=== PATIENT | female | born 1965 | race Caucasian/White ===

== ENCOUNTER 2017-06-08 11:52 | Emergency (ER) | payer BC ==
[2017-06-08 12:00] VITALS: BP 139/100
--- NOTE | 2017-06-08 12:15 | ERNOTE ---
GI Bleeding/Rectal Pain ER Presenting Symptoms: hemorrhoids, other - patient had recent hemorrhoid surgery in [place] Time Seen by Provider: 06/08/17 12:00 Immunizations: IMMUNIZATION HX Immunizations Up to Date Yes History of Influenza Vaccine No Hx Pneumococcal Vaccination No Allergies/Adverse Reactions: Allergies No Known Allergies Allergy (Verified 06/08/17 12:00) Home Medications: HOME MEDICATIONS HYDROcodone/ACETAMINOPHEN [[place] 5-325] 1 tab PO Q6H PRN 06/08/17 [Last Taken Unknown] Narrative: patient had recent hemorrhoidectomy approximately one week ago and had an exacerbation of the pain with continuing bleeding Timing: constant Quality/Severity: Present: moderate Nausea/Vomiting: Present: none Rectal Bleeding: Present: blood mixed with stool Prior Treament: Reports: recently seen, treated by physician Review of Systems - Review of Systems Constitutional: Present: See HPI EYE: Present: no symptoms reported ENT: Present: no symptoms reported Respiratory: Present: no symptoms reported Cardiology: Present: no symptoms reported Gastrointestinal/Abdominal: Present: See HPI Genitourinary: Present: no symptoms reported Musculoskeletal: Present: no symptoms reported Skin: Present: no symptoms reported Neurological: Present: no symptoms reported Endocrine: Present: no symptoms reported Hematologic/Lymphatic: Present: no symptoms reported Psych: Present: no symptoms reported - Patient's Past Medical History Patient History - Medical: No pertinent hx Patient History - Cardiac/Respiratory: No pertinent hx Patient History - Cancer: No Hx of Cancer Patient History - Surgical Procedures: Hysterectomy, Other - hemorrhoidectomy last week and [facility] Patient History - Other: None - Family History Father Family History - Medical: Diabetes Type 2 Mother Family History - Medical: Alzheimer's Disease - Social History Psych History: No pertinent hx Smoking Status: Never smoker Have you smoked in the past 12 months: No - Immunizations Immunizations Up to Date: Yes Hx Pneumococcal Vaccination: No History of Influenza Vaccine: No Physical Exam - Physical Exam General Appearance: Present: wd/wn, alert, moderate distress Eye Exam: Normal inspection: bilateral, PERRL: bilateral Ears, Nose, Throat: Present: normal ENT inspection, H, normal pharynx Neck: Present: normal inspection, nontender Respiratory: Present: no respiratory distress, normal breath sounds, no accessory muscle use, chest nontender, lungs clear Cardiovascular/Chest: Present: regular rate, rhythm, no murmur, normal peripheral pulses Gastrointestinal/Abdominal: Present: normal bowel sounds, nontender, nondistended, soft, no organomegaly Rectal Exam: Present: hemorrhoids - all the patient stated that she had a hemorrhoidectomy she appears to have a new hemorrhoid present with some residual bleeding around the previous hemorrhoidectomy Back Exam: Present: normal inspection, normal range of motion Extremity Exam: Present: normal inspection, non-tender, no edema, normal range of motion Neurological Exam: Present: alert, oriented, normal mood/affect Skin Exam: Present: normal color, warm/dry Lymphatic Exam: Present: no adenopathy ED Progress - Vital Signs Patient's Vital Signs:: I have reviewed the patient's vital signs. Vital Signs: Vital Signs 06/08/17 11:57 Temperature 36.4 C L Pulse Rate 116 H Respiratory 14 Rate Blood Pressure 139/100 O2 Sat by Pulse 96 Oximetry - Progress/Reassessment Chief Complaint: GI Bleed Plan - Plan Plan: It was suggested to the patient that she call her surgeon in [place] for repeat examination. Patient states that she had excision of the hemorrhoids however she appears to have a new hemorrhoid present and still has some trace residual bleeding around the previous hemorrhoidectomy. Departure Clinical Impression: History of hemorrhoidectomy Hemorrhoids Qualifiers: Hemorrhoid type: unspecified Qualified Code(s): K64.9 - Unspecified hemorrhoids - Departure Disposition: Home self-care Condition: Good Instructions: Surgical Procedures for Hemorrhoids, Care After, Hemorrhoids, [id number] Additional Instructions: Call your surgeon in [place] Referrals: Clari Grover MD [Primary Care Provider] -
== END 2017-06-08 12:20 | disposition home or self-care (01) ==
LOC: ER 11:52
DX: K64.9 Unspecified hemorrhoids (principal); Z98.890 Other specified postprocedural states